=== PATIENT | male | born 1955 | race Caucasian/White ===

== ENCOUNTER 2016-08-23 03:14 | Inpatient (IN) ==
[2016-08-23] MEDS ORDERED: DILAUDID IV ONE ×2 (04:05→06:35)
[2016-08-23] MEDS ORDERED: ZOFRAN IV ONE (04:05)
[2016-08-23] MEDS ORDERED: NS 1,000 ML IV ONE (04:08)
[2016-08-23 04:29] LABS: BASO% 0.1 % (0.0-0.8); EOS# 0.04 X1000 (0.0-0.7); EOS% 0.4 % (0.0-10.0); HEMATOCRIT 46.7 % (42.0-52.0); HEMOGLOBIN 15.5 g/dL (14.0-18.0); IMM GRAN# 0.04 X1000 (0.0-0.04); IMM GRAN% 0.4 % (0.0-0.5); LYMPH# 0.63 X1000 (1.2-3.4); LYMPH% 5.6 % (20.5-51.1); MANUAL DIFF NEEDED? NO; MCH 28.4 PG (27-31); MCHC 33.2 g/dL (33-37); MCV 85.5 FL (81-99); MONO% 4.4 % (1.7-9.3); MPV 10.1 FL (7.4-10.4); NEUT% 89.1 % (42.2-75.2); PLT 300 X1000 (130-400); RBC 5.46 XMIL (4.7-6.1)
[2016-08-23 04:43] LABS: AGAP 14; ALBUMIN 3.5 g/dL (3.5-5.0); ALKALINE PHOSPHATASE 119 U/L (32-122); BUN 16 mg/dL (8-22); CALCIUM 8.7 mg/dL (8.8-10.2); CHLORIDE 104 mmol/L (98-107); COSMO 282; GOT 24 U/L (10-34); GPT 16 U/L (10-44); LIPASE 15 U/L (13-60); POTASSIUM 3.7 mmol/L (3.5-5.1); SODIUM 140 mmol/L (136-145); TCO2 22 mmol/L (25-35); TOTAL BILIRUBIN 1.38 mg/dL (0.20-1.00); TOTAL PROTEIN 6.7 g/dL (6.3-8.3)
[2016-08-23 05:09] LABS: URINE CULTURE NEEDED? NO; URINE MICRO REVIEW NEEDED? NO; URINE SOURCE CLEAN CATCH
[2016-08-23 05:13] LABS: BILIRUBIN URINE SMALL (NEGATIVE); BLOOD URINE NEGATIVE (NEGATIVE); COLOR ORANGE; GLUCOSE URINE NEGATIVE (NEGATIVE); LEUKOCYTES URINE NEGATIVE (NEGATIVE); NITRITE URINE NEGATIVE (NEGATIVE); PH URINE 5.5; PROTEIN URINE 30 mg/dL (NEGATIVE); SP GRAVITY URINE 1.038; TURBIDITY URINE CLEAR (CLEAR); UROBILINOGEN URINE 6 mg/dL (NORMAL)
[2016-08-23 05:14] LABS: UR EPITHELIAL CELLS <10 /HPF (<10); URINE BACTERIA NEGATIVE /HPF; URINE RBC <10 /HPF (<10); URINE WBC <10 /HPF (<10)
--- NOTE | 2016-08-23 05:46 | PROVIDER DOCUMENTATION ---
HPI-Abdominal Pain/GI Problem - General Chief Complaint: Abdominal Pain Stated Complaint: left flank pain Time Seen by Provider: 08/23/16 04:05 Source: patient (Patient is a 61 year old white male with history of diverticulitis with ruptured colon,CAD,diabetes,and Crohns disease who presents with worsening sharp 8/10 LLQ abdomen and flank pain since yesterday afternoon which feels like when he had a ruptured colon. Followed by dr. Eubanks and GI doctor in [place].) Allergies/Adverse Reactions: Patient Allergies Allergy/AdvReac Type Severity Reaction Status Date / Time niacin AdvReac FLUSHING Verified 01/02/16 17:27 [From [facility] Extended-Release] Home Medications: Home Medication List Medication Instructions Recorded Confirmed Last Taken Type Aspirin 325 mg PO DAILY #0 tablet 01/06/16 08/23/16 08/22/16 Rx RAMIpril [Altace] 5 mg PO DAILY #0 capsule 01/06/16 08/23/16 08/22/16 Rx SIMVAstatin [Zocor] 80 mg PO QHS #0 tablet 01/06/16 08/23/16 08/22/16 Rx Zolpidem [Ambien] 10 mg PO QHS #0 tablet 01/06/16 08/23/16 08/22/16 Rx Esomeprazole Magnesium [Nexium 1 tab PO DAILY 08/23/16 08/23/16 08/22/16 History 24Hr] Venlafaxine [Effexor] 1 tab PO DAILY 08/23/16 08/23/16 08/22/16 History - History of Present Illness-ABD Abdominal Pain Onset Location: reports: LLQ, flank (left) Pain Radiation: reports: no radiation Quality of Pain: reports: aching, sharp Onset/Duration: reports: other (yesterday afternoon) Timing: reports: getting worse Activities at Onset: reports: none Associated Symptoms: denies: chest pain, constipation, diaphoresis, diarrhea, fever/chills, genitourinary problems Dark Stools Present?: reports: none noticed Rectal Pain: reports: none Bruising or Bleeding Gums?: No Similar Symptoms Previously?: Yes Recently seen or treated by another doctor?: No Review of Systems - Adult - REVIEW OF SYSTEMS - ADULT Constitutional: denies: chills, fever Eyes: reports: no symptoms reported Ears, Nose, Mouth & Throat: reports: no symptoms reported Cardiovascular: denies: chest pain Respiratory: denies: shortness of breath Gastrointestinal: reports: see HPI, abdominal pain, nausea. denies: constipation, diarrhea, rectal bleeding Musculoskeletal: reports: no symptoms reported Integumentary: reports: no symptoms reported Neurological: reports: no symptoms reported Psychiatric: reports: no symptoms reported Endocrine: reports: no symptoms reported Hematologic/Lymphatic: reports: no symptoms reported Allergic/Immunologic: reports: no symptoms reported All Other Systems: Reviewed and Negative Past History - Adult - PAST MEDICAL HISTORY-ADULT Review of Records: reports: Old Records Reviewed, Nursing Assessment Review, Medications Reviewed, Social history reviewed & non-contributory. Major Childhood Illnesses: reports: denies history Cardiovascular: reports: denies history, MA (1992) Respiratory: reports: denies history Gastrointestinal: reports: diverticulosis, GERD, other (ruptured colon that healed on its own, gastroparesis) - PRIOR SURGERIES/PROCEDURES Surgical/Procedure History: reports: cholecystectomy, cardiac stent, other ( repair for diverticular rupture) - IMMUNIZATION STATUS Childhood Immunizations: UTD Flu Vaccine: See Nurse Assessment Physical Exam-General - CONSTITUTIONAL General Appearance: alert, other (in pain) - EYES Eyes: other (clear) - HEAD, EARS, NOSE, MOUTH & THROAT HENMT: moist mucous membranes, normal ENT inspection - NECK Neck: non-tender, supple - RESPIRATORY Respiratory: lungs clear - CARDIOVASCULAR Cardiovascular: regular rate, rhythm - GASTROINTESTINAL (ABDOMEN) Abdominal Exam: soft, other (LLQ tenderness). negative: guarding, rebound - MUSCULOSKELETAL Back Exam: normal inspection, other (left CVA tenderness) Extremity: normal range of motion Peripheral Pulses: radial (R): 2+, radial (L): 2+ - SKIN Integumentary: normal color, normal turgor - NEUROLOGIC Neurologic: grossly normal - PSYCHIATRIC Psych/Mental Status: anxious Progress - PLAN OF CARE/RESULTS Progress/Plan/Lab Results: Vital Signs - 8 hr 08/23/16 03:17 Temperature 98.2 F Pulse Rate 99 H Respiratory Rate 18 Blood Pressure 105/64 O2 Sat by Pulse Oximetry 100 Laboratory Results - last 24 hr 08/23/16 08/23/16 08/23/16 03:30 03:30 03:30 WBC 11.31 H RBC 5.46 Hgb 15.5 Hct 46.7 MCV 85.5 MCH 28.4 MCHC 33.2 RDW Std Deviation 14.3 Plt Count 300 MPV 10.1 Immature Gran % (Auto) 0.4 Neut % (Auto) 89.1 H Lymph % (Auto) 5.6 L Archer % (Auto) 4.4 Eos % (Auto) 0.4 Baso % (Auto) 0.1 Immature Gran # (Auto) 0.04 Neut # (Auto) 10.09 H Lymph # (Auto) 0.63 L Archer # (Auto) 0.50 Eos # (Auto) 0.04 Baso # (Auto) 0.01 Sodium 140 Potassium 3.7 Chloride 104 Carbon Dioxide 22 L Anion Gap 14 BUN 16 Creatinine 1.0 Estimated GFR/1.73 m2 > 60 BUN/Creatinine Ratio 16 Glucose 119 H Calculated Osmolality 282 Calcium 8.7 L Total Bilirubin 1.38 H AST 24 ALT 16 Alkaline Phosphatase 119 Troponin T < 0.010 Total Protein 6.7 Albumin 3.5 Globulin 3.2 Albumin/Globulin Ratio 1.1 Lipase 15 Urine Source Urine Color Urine Turbidity Urine pH Ur Specific [place] Urine Protein Ur Glucose (Stick) Ur Ketones (Stick) Urine Blood Urine Nitrite Urine Bilirubin Urobilinogen Dipstick Urine Leukocytes Urine WBC (Auto) Urine RBC (Auto) U Epithel Cells (Auto) Urine Bacteria (Auto) 08/23/16 05:08 WBC RBC Hgb Hct MCV MCH MCHC RDW Std Deviation Plt Count MPV Immature Gran % (Auto) Neut % (Auto) Lymph % (Auto) Archer % (Auto) Eos % (Auto) Baso % (Auto) Immature Gran # (Auto) Neut # (Auto) Lymph # (Auto) Archer # (Auto) Eos # (Auto) Baso # (Auto) Sodium Potassium Chloride Carbon Dioxide Anion Gap BUN Creatinine Estimated GFR/1.73 m2 BUN/Creatinine Ratio Glucose Calculated Osmolality Calcium Total Bilirubin AST ALT Alkaline Phosphatase Troponin T Total Protein Albumin Globulin Albumin/Globulin Ratio Lipase Urine Source CLEAN CATCH Urine Color ORANGE Urine Turbidity CLEAR Urine pH 5.5 Ur Specific [place] 1.038 Urine Protein 30 A Ur Glucose (Stick) NEGATIVE Ur Ketones (Stick) TRACE A Urine Blood NEGATIVE Urine Nitrite NEGATIVE Urine Bilirubin SMALL A Urobilinogen Dipstick 6 A Urine Leukocytes NEGATIVE Urine WBC (Auto) <10 Urine RBC (Auto) <10 U Epithel Cells (Auto) <10 Urine Bacteria (Auto) NEGATIVE Orders Category Date Time Status Saline Loc DIRECTED Care 08/23/16 04:06 Active NPO Diet 08/23/16 04:[address] ABD/PELVIS W/ IV CONT ONLY [CT] Stat Exams 08/23/16 04:06 Taken CBC WITH ELECTRONIC DIFF [HEME] Stat Lab 08/23/16 03:30 Completed COMPREHENSIVE METABOLIC PANEL [CHEM] Stat Lab 08/23/16 03:30 Completed LIPASE [CHEM] Stat Lab 08/23/16 03:30 Completed TROPONIN T Stat Lab 08/23/16 03:30 Completed URINALYSIS W/POSS RFLX CULT-1 [URINALYSIS] Stat Lab 08/23/16 05:08 Completed 0.9% Sodium Chloride Inj [Ns] 1,000 ml Med 08/23/16 04:08 Discontinued IV 999 mls/hr Hydromorphone [Dilaudid] Med 08/23/16 04:05 Discontinued 1 mg IV NOW ONE Ondansetron [Zofran] Med 08/23/16 04:05 Discontinued 4 mg IV NOW ONE EKG [EKG] Stat Ther 08/23/16 04:08 Ordered Result Diagrams: 08/23/16 03:30 08/23/16 03:30 - EKG 1 Time of EKG reading by physician:: 04:14 EKG Read and Signed by:: Armand Lees EKG Interpretation (*Must complete 3 of following elements*): Normal Partridge: normal QRS: normal RI Interval: normal ST Wave: normal - CHANGE OF SHIFT REPORT (ED Provider) Report Given and Care Transferred to:: Dr. Shankar Wooten Time of Transfer: 06:00 Items Pending: Labs, CT/MRI Results Departure - Departure Time of Disposition Decision: 06:00 DIAGNOSIS: Abdominal pain Qualifiers: Abdominal location: left lower quadrant Qualified Code(s): R10.32 - Left lower quadrant pain Disposition: STILL A PATIENT 30 Certified Medical Emergency: Emergent Condition: Stable Referrals and Follow-Ups: Junior Eubanks DO [Primary Care Provider] - - Critical Care Note This patient required my direct & personal management of CC.: No
[2016-08-23] MEDS ORDERED: ZOSYN 3.375 GM/NS 3.375 GM/50 ML IVPB IV ONE (06:06)
[2016-08-23] MEDS ORDERED: ZOFRAN IV PRN (08:11)
--- NOTE | 2016-08-23 08:12 | Diag Imaging Result Doc PS360 ---
CT ABD/PELVIS W/ IV CONT ONLY - 08/23/2016 INDICATION: LLQ pain TECHNIQUE: A CT dose reduction protocol was used. COMPARISON: 01/02/2016 FINDINGS: There is strandy atelectasis in the lung bases. There is moderate intraperitoneal free air. The source appears to be several loops of inflamed small bowel at the lateral left mid abdomen, in a location that was inflamed on the previous CT from 2016. There are several moderately dilated loops of small bowel, nonspecific, probably ileus as a result. No colonic obstruction. The distal colon is somewhat collapsed. There are numerous distal colon diverticula. Stable renal cysts. Stable hemangioma at the liver dome. Stable cholecystectomy changes. Stable tiny cyst in the spleen. There is trace free fluid in the pelvis. There are moderate degenerative changes of the spine. No acute or suspicious bony lesion. IMPRESSION: 1. Perforation arising from the left lower quadrant of the abdomen, in a location of several loops of small bowel that are inflamed. These were inflamed on the prior exam as well. 2. Severe diverticulosis coli 3. Small bowel ileus. Electronically signed by Espinoza Cedeno 08/23/2016 8:09 AM
[2016-08-23] MEDS: NS 1,000 ML IV SCH ×2 (09:28→17:45)
--- NOTE | 2016-08-23 09:28 | HISTORY AND PHYSICAL ---
CHIEF COMPLAINT: Abdominal discomfort in the left side of the abdomen and epigastrium. HISTORY: This is a 61-year-old gentleman, who reports the onset of abdominal pain yesterday. He says this feels like previous episodes when his colon or small bowel perforated. He presented to the emergency department this morning at [address] scan shows some extraluminal air, consistent with perforation. He does not present in extremis just with some diffuse abdominal pain. His home physician is Dr. Eubanks. He is followed by a gold layer in [place] but has not seen him for a few months. He has had previous episodes similar to this that were treated with antibiotics and resolved. One time he was operated on and had a small bowel resection for perforation. PAST MEDICAL HISTORY: Pertinent for coronary artery disease. He has had a heart attack in the early 90s. He has questionable vth-[id number]-[id number] diabetes. He has been told he might have Crohn disease as well. MEDICATIONS: At home include aspirin 325 mg daily, Altace 5 mg daily, Zocor 80 mg at bedtime, Ambien 10 mg at bedtime, Nexium 1 tablet daily. Effexor 1 tablet daily. He is intolerant of niacin which causes flushing, denies any true drug allergies. PAST SURGICAL HISTORY: His past history is as noted above, also has some gastroesophageal reflux. His other surgery besides his small bowel resection was a cholecystectomy, cardiac stent placement. FAMILY HISTORY: Noncontributory. SOCIAL HISTORY: He is . He is employed at [employer] [place]. Denies smoking or alcohol usage. REVIEW OF SYSTEMS: Constitutional: Denies chills or fever. Eyes: Reports no symptoms. ENT: No symptoms. Cardiac: No chest pain. Respiratory: No shortness of breath. GI: A little nausea and the diffuse pain. No constipation or diarrhea. Musculoskeletal: Negative. Integument: Negative. Neurologic: Negative. Psychiatric: Negative. Endocrine: Negative. Hematologic: Negative. Allergic: Negative. PHYSICAL EXAMINATION: VITAL SIGNS: He is afebrile. Heart rate 99, respiratory rate 18, blood pressure 105/64. He is normocephalic. No cervical adenopathy. No thyroid masses are palpated. LUNGS: Bilateral breath sounds are present. HEART: Regular rate and rhythm. ABDOMEN: Soft, diffusely tender. Complains more about in the epigastrium. Femoral pulses are present. No peripheral edema. EXTREMITIES: He has 2+ posterior tibial pulses. NEUROLOGIC: He is awake and alert. DIAGNOSTICS/LABS: White count 15572. Glucose 119. ASSESSMENT: Possible perforated diverticulum. PLAN: The plan is IV antibiotic therapy. I do not think an urgent trip to the operating room is indicated at this time. We discussed this; he agrees. cc: Subhash Lamb MD
[2016-08-23] MEDS: ZOSYN 3.375 GM/NS 3.375 GM/50 ML IVPB IV SCH ×4 (09:29→23:56)
[2016-08-23] MEDS: ASPIRIN PO SCH (09:32)
[2016-08-23] MEDS: ALTACE PO SCH (09:32)
[2016-08-23] MEDS: PRILOSEC PO SCH (09:32)
[2016-08-23] MEDS: EFFEXOR PO SCH (09:32)
[2016-08-23] MEDS: DILAUDID IV PRN ×3 (12:22→21:57)
[2016-08-23] MEDS: NORCO-10 PO PRN (17:45)
[2016-08-23] MEDS: ZOCOR PO SCH ×2 (19:48→23:55)
[2016-08-23] MEDS: HUMULIN R SUBQ SCH (21:41)
[2016-08-23] MEDS: AMBIEN PO SCH (21:41)
[2016-08-24] MEDS: NS 1,000 ML IV SCH ×4 (01:11→18:15)
[2016-08-24] MEDS: DILAUDID IV PRN ×4 (01:50→15:50)
[2016-08-24] MEDS: ZOSYN 3.375 GM/NS 3.375 GM/50 ML IVPB IV SCH ×4 (03:45→23:46)
[2016-08-24 06:00] LABS: MANUAL DIFF NEEDED? NO
[2016-08-24 06:01] LABS: BASO% 0.1 % (0.0-0.8); EOS% 2.8 % (0.0-10.0); HEMATOCRIT 43.5 % (42.0-52.0); HEMOGLOBIN 14.2 g/dL (14.0-18.0); IMM GRAN# 0.02 X1000 (0.0-0.04); IMM GRAN% 0.2 % (0.0-0.5); LYMPH# 0.79 X1000 (1.2-3.4); LYMPH% 7.3 % (20.5-51.1); MCH 28.5 PG (27-31); MCHC 32.6 g/dL (33-37); MCV 87.3 FL (81-99); MONO# 0.55 X1000 (0.11-0.59); MONO% 5.1 % (1.7-9.3); MPV 10.2 FL (7.4-10.4); NEUT% 84.5 % (42.2-75.2); PLT 282 X1000 (130-400); RBC 4.98 XMIL (4.7-6.1)
[2016-08-24] MEDS: PRILOSEC PO SCH (06:11)
[2016-08-24] MEDS: NORCO-10 PO PRN (06:11)
[2016-08-24] MEDS: HUMULIN R SUBQ SCH ×4 (06:12→23:46)
[2016-08-24 06:24] LABS: AGAP 12; BUN 16 mg/dL (8-22); CHLORIDE 99 mmol/L (98-107); COSMO 273; POTASSIUM 3.9 mmol/L (3.5-5.1); SODIUM 136 mmol/L (136-145); TCO2 25 mmol/L (25-35)
[2016-08-24] MEDS: ASPIRIN PO SCH (08:34)
[2016-08-24] MEDS: EFFEXOR PO SCH (08:34)
[2016-08-24] MEDS: ALTACE PO SCH (12:11)
[2016-08-24] MEDS: ZOCOR PO SCH (23:46)
[2016-08-24] MEDS: AMBIEN PO SCH (23:46)
[2016-08-25] MEDS: NS 1,000 ML IV SCH ×4 (02:09→20:57)
[2016-08-25] MEDS: ZOSYN 3.375 GM/NS 3.375 GM/50 ML IVPB IV SCH ×4 (02:09→20:54)
[2016-08-25] MEDS ORDERED: TYLENOL PO PRN (02:19)
[2016-08-25] MEDS ORDERED: MOTRIN PO PRN (04:40)
[2016-08-25 05:51] LABS: MANUAL DIFF NEEDED? NO
[2016-08-25 05:56] LABS: BASO% 0.1 % (0.0-0.8); EOS# 0.17 X1000 (0.0-0.7); EOS% 2.5 % (0.0-10.0); HEMATOCRIT 37.5 % (42.0-52.0); HEMOGLOBIN 12.5 g/dL (14.0-18.0); LYMPH# 0.69 X1000 (1.2-3.4); MCH 28.6 PG (27-31); MCHC 33.3 g/dL (33-37); MCV 85.8 FL (81-99); MONO# 0.44 X1000 (0.11-0.59); MONO% 6.4 % (1.7-9.3); MPV 9.8 FL (7.4-10.4); PLT 239 X1000 (130-400); RBC 4.37 XMIL (4.7-6.1)
[2016-08-25] MEDS: HUMULIN R SUBQ SCH ×4 (06:08→20:55)
[2016-08-25] MEDS: PRILOSEC PO SCH (06:20)
[2016-08-25] MEDS: ASPIRIN PO SCH (08:16)
[2016-08-25] MEDS: EFFEXOR PO SCH (08:16)
--- NOTE | 2016-08-25 08:51 | PROGRESS NOTE ---
DATE: 08/25/2016 Mr. Benjamin Lacy is now hospital day 3, being admitted for complicated small-bowel or sigmoid diverticulitis. He was admitted on 08/23/2016 through the emergency department per Dr. Lamb. He has been placed on IV antibiotics and clinically he states that he feels better. His white blood cell count has gone from 10.86 to 6.91. Hematocrit is 37%. He is afebrile. His heart rate is 87, blood pressure 117/77, O2 saturation 92%. He is on IV Zosyn. He has been given a full liquid diet per Dr. Lamb. His abdomen is mostly soft. It is cement based materials pump tender in the left lower quadrant. Will continue conservative treatment with IV antibiotics. I will leave his diet as it is, as a full liquid diet. cc: MD Subhash Robertson MD
[2016-08-25] MEDS: ALTACE PO SCH (12:08)
[2016-08-25] MEDS: DILAUDID IV PRN (17:27)
[2016-08-25] MEDS: ZOCOR PO SCH (20:53)
[2016-08-25] MEDS: AMBIEN PO SCH (20:54)
[2016-08-25] MEDS: NORCO-10 PO PRN (22:42)
[2016-08-26] MEDS: ZOSYN 3.375 GM/NS 3.375 GM/50 ML IVPB IV SCH ×4 (03:03→20:20)
[2016-08-26] MEDS: DILAUDID IV PRN ×3 (03:05→20:19)
[2016-08-26] MEDS: PRILOSEC PO SCH (05:59)
[2016-08-26] MEDS: HUMULIN R SUBQ SCH ×4 (06:06→21:33)
[2016-08-26] MEDS: NORCO-10 PO PRN ×3 (08:02→22:54)
[2016-08-26] MEDS: ASPIRIN PO SCH (08:15)
[2016-08-26] MEDS: ALTACE PO SCH (08:15)
[2016-08-26] MEDS: EFFEXOR PO SCH (08:15)
[2016-08-26] MEDS: NS 1,000 ML IV SCH ×3 (11:44→18:05)
--- NOTE | 2016-08-26 15:07 | Diag Imaging Result Doc PS360 ---
EXAM: ABDOMEN/PELVIS W/CONTRAST INDICATION: evaluate area of diverticulitis for abscess COMPARISON: 08/23/2016 FINDINGS: There is a very small right pleural effusion and probably trace fluid on the left as well. There is mild subsegmental atelectasis at the lung bases. There is less free abdominal gas as compared to the recent prior study. There is still extensive inflammatory change arising from the left lower quadrant with several thickened loops of small bowel in the region. The inflammatory changes and thickening appear to be somewhat worse than the previous study. There appear to be small fluid collections between the loops of this inflamed segment of small bowel. This is worrisome for developing inflammatory phlegmon. There is a larger fluid collection that appears to be loculated lateral please loops of bowel and anterior to the descending colon measuring approximately 5.7 x 2.0 cm axially. A developing abscess here cannot be excluded. There is also small volume nonloculated free fluid layering in the pelvis. There are several fluid-filled loops of small bowel containing air-fluid levels likely representing ileus. Otherwise, the abdomen and pelvis are essentially stable as compared to the recent previous study. IMPRESSION: 1.Worsening inflammatory changes and thickening involving several loops of small bowel in the left lower quadrant. 2.Overall less free abdominal gas is compared to the previous study. 3.A few tiny fluid collections interdigitating between loops of the inflamed small bowel in the left lower quadrant and a larger fluid collection abutting the lateral abdominal wall on the left at the same level. This is worrisome for phlegmon/developing abscess. 4.Bilateral small pleural effusions. 5.Essentially stable, otherwise. Electronically signed by Toiñto Lawrence 08/26/2016 3:05 PM
[2016-08-26] MEDS: ZOCOR PO SCH (20:21)
[2016-08-26] MEDS: AMBIEN PO SCH (20:21)
[2016-08-27] MEDS: DILAUDID IV PRN (01:35)
[2016-08-27] MEDS: NS 1,000 ML IV SCH ×4 (01:35→22:51)
[2016-08-27] MEDS: ZOSYN 3.375 GM/NS 3.375 GM/50 ML IVPB IV SCH ×4 (03:19→22:42)
[2016-08-27] MEDS: PRILOSEC PO SCH (06:22)
[2016-08-27] MEDS: HUMULIN R SUBQ SCH ×4 (06:23→22:30)
[2016-08-27] MEDS: EFFEXOR PO SCH (08:15)
[2016-08-27] MEDS: ALTACE PO SCH (08:15)
[2016-08-27] MEDS: ASPIRIN PO SCH (08:15)
[2016-08-27] MEDS: NORCO-10 PO PRN ×3 (08:21→22:50)
[2016-08-27] MEDS ORDERED: GOLYTELY PO ONE (10:00)
--- NOTE | 2016-08-27 11:54 | EKG Report ---
Test Performed on : 08/27/2016 06:24:08 AM Test Reason : CP Blood Pressure : / mmHG Vent. Rate : 086 BPM Atrial Rate : 086 BPM P-R Int : 142 ms QRS Dur : 088 ms QT Int : 400 ms P-R-T Axes : 027 075 029 degrees QTc Int : 478 ms Normal sinus rhythm. Normal ECG When compared with ECG of 23-AUG-2016 04:13, Nonspecific T wave abnormality no longer evident in Lateral leads Confirmed by Garett Olsen MD ([id number]) on 08/27/2016 4:17:25 PM
[2016-08-27] MEDS: ERYTHROMYCIN BASE PO SCH ×3 (14:21→22:41)
[2016-08-27] MEDS: NEOMYCIN PO SCH ×3 (14:21→22:41)
[2016-08-27] MEDS: ZOCOR PO SCH (22:40)
[2016-08-27] MEDS: AMBIEN PO SCH (22:41)
[2016-08-28] MEDS: NS 1,000 ML IV SCH ×2 (00:48→17:48)
[2016-08-28] MEDS: DILAUDID IV PRN ×5 (03:31→23:04)
[2016-08-28] MEDS: ZOSYN 3.375 GM/NS 3.375 GM/50 ML IVPB IV SCH ×4 (03:32→22:11)
[2016-08-28] MEDS: PRILOSEC PO SCH (06:08)
[2016-08-28] MEDS: NORCO-10 PO PRN (06:30)
[2016-08-28] MEDS: HUMULIN R SUBQ SCH ×4 (06:33→21:36)
[2016-08-28] MEDS: ALTACE PO SCH (09:56)
[2016-08-28] MEDS: ASPIRIN PO SCH (09:57)
[2016-08-28] MEDS: EFFEXOR PO SCH (09:57)
[2016-08-28] MEDS ORDERED: VERSED ONE ×2 (11:32→12:02)
[2016-08-28] MEDS ORDERED: MARCAINE 0.25% PF ONE (11:32)
[2016-08-28] MEDS ORDERED: SODIUM CHLORIDE 0.9% 10 ML ONE (11:32)
[2016-08-28] MEDS ORDERED: EXPAREL 1.3% ONE (11:33)
[2016-08-28] MEDS ORDERED: FENTANYL ONE (14:52)
[2016-08-28] MEDS ORDERED: DIPRIVAN 1% ONE (14:53)
[2016-08-28 15:19] LABS: URINE MICRO REVIEW NEEDED? NO; URINE SOURCE CATH
[2016-08-28 15:27] LABS: BILIRUBIN URINE NEGATIVE (NEGATIVE); BLOOD URINE NEGATIVE (NEGATIVE); COLOR YELLOW; GLUCOSE URINE NEGATIVE (NEGATIVE); LEUKOCYTES URINE NEGATIVE (NEGATIVE); NITRITE URINE NEGATIVE (NEGATIVE); PROTEIN URINE NEGATIVE (NEGATIVE); SP GRAVITY URINE 1.012; TURBIDITY URINE CLEAR (CLEAR); UR EPITHELIAL CELLS <10 /HPF (<10); URINE BACTERIA NEGATIVE /HPF; URINE RBC <10 /HPF (<10); URINE WBC <10 /HPF (<10); UROBILINOGEN URINE NORMAL (NORMAL)
--- NOTE | 2016-08-28 15:41 | OPERATIVE NOTE ---
PROCEDURE DATE: 08/28/2016 NAME OF THE PROCEDURE: Exploratory laparotomy, left colectomy with mobilization of splenic flexure; resection of a portion of jejunum (greater than 100 cm) and drainage of intra-abdominal abscess. SURGEON: Subhash Lamb MD. TICKET COUNTER: Dr. Duran, Morgan Jacinto, RN, Naye Nuñez, RN. PREOPERATIVE DIAGNOSIS: Perforated diverticulitis with intra-abdominal abscess. POSTOPERATIVE DIAGNOSIS: Perforated diverticulitis with intra-abdominal abscess. INDICATIONS: 61-year-old was admitted with perforated diverticulitis. He has been treated with antibiotics. We were able to prep his bowel. Serial CAT scan show development of an intra- abdominal abscess with increased inflammation. DESCRIPTION OF PROCEDURE: After satisfactory general endotracheal anesthesia was achieved, the abdomen was prepped and draped in a sterile fashion. A midline incision was made. We entered the abdominal cavity. There were adhesions between the omentum and anterior abdominal wall. We took those down with electrocautery. We took care not to injure the bowel. We went on to the left side and encountered the abscess in the left gutter and evacuated the pus that was present. There was also purulence between the small bowel loops. We the greater omentum off the abscess cavity and unroofed it. There were multiple loops of small bowel with diverticula that appeared to be involved. In further dissecting out the left upper quadrant there was thickening to the left colon as well. So I felt that there was diverticulitis involving the left colon as well as some of the small bowel so I decided to resect the left colon as well as a portion of the jejunum. We incised the white line of Toldt all the way down to the sigmoid and began mobilization of splenic flexure using the electrocautery and the LigaSure. We took the greater omentum off the transverse portion of the distal transverse colon. We continued to use the LigaSure to divide the greater omentum until we could mobilize the splenic flexure and the left colon into the wound. We chose a place in the sigmoid to divide it with a MIHAI 80 blue cartridge. We then divided the mesentery all the way up the left colic using a LigaSure. We clamped and divided the left colic and suture ligated with a 2-0 silk suture ligature. We then brought the distal transverse colon down to the sigmoid. We divided that portion of the left colon and the distal transverse colon and handed off the diseased segment. We approximated the end of the colon. We used 3-0 silks and seromuscular stitches to approximate the posterior layer. We removed the staple line. We used a 3-0 Polysorb running locking stitch of the mucosa and then changed to a [place] stitch anteriorly and the final layer was 3-0 silks in a Lembert fashion. This completed the resection of the left colon and the end-to-end anastomosis. We did not have to close the mesentery. We then identified the diseased segment of small bowel with multiple large diverticula and we decided to resect about 100 cm or at least 100 cm of the jejunum that was diseased. We laid the small bowel [id number], divided the small bowel with the MIHAI 60 blue cartridge, laying the proximal jejunum to the distal jejunum and then after dividing the small bowel we divided the mesentery with the LigaSure all the way to the major vessels. We clamped and divided them and suture ligated with 2-0 silk suture ligature. This allowed us to hand off the diseased segment of small bowel. We then laid the small bowel [id number]. We used a 3-0 silk to approximate them, cut off the corners of the staple line and introduced a MIHAI 80 blue cartridge to do a [id number] stapled anastomosis. The open end of the bowel was grasped with Allis and a TA 60 blue cartridge used to staple off the opened end of both limbs of the bowel. We then inverted that staple line with 3-0 silks in a Lembert fashion. We closed the mesentery with 3-0 silks. We changed gloves at this point and rid ourselves of contaminated instruments. We irrigated the abdominal cavity copiously with warm saline. Hemostasis was satisfactory. There was thickened portion of greater omentum that we removed using the LigaSure. We then laid the residual omentum over the bowel and proceeded after washing out the abdominal cavity in all 4 quadrants we then palpated the NG tube in the stomach and it was appropriate position. We then closed the peritoneum with 2-0 chromic. We closed the fascia with running #2 Prolene. We irrigated out subcutaneous tissue copiously. We then closed the skin with magan. Sterile dressing was applied. He tolerated it well. Was sent to the recovery room in satisfactory condition. cc: Subhash Lamb MD
[2016-08-28] MEDS ORDERED: NS 1,000 ML ONE (16:05)
[2016-08-28] MEDS: OFIRMEV 1000 MG/ISOTONIC SOLN 1,000 MG/100 ML BOTTLE IV SCH ×2 (17:07→23:04)
[2016-08-28] MEDS: PROTONIX IV SCH (17:08)
[2016-08-28] MEDS: PERIDEX MT SCH (22:11)
[2016-08-28] MEDS: AMBIEN PO SCH (22:11)
[2016-08-29] MEDS: DILAUDID IV PRN ×5 (02:06→20:26)
[2016-08-29] MEDS: NS 1,000 ML IV SCH ×4 (02:06→18:06)
[2016-08-29] MEDS: ZOSYN 3.375 GM/NS 3.375 GM/50 ML IVPB IV SCH ×4 (05:00→23:09)
[2016-08-29] MEDS: OFIRMEV 1000 MG/ISOTONIC SOLN 1,000 MG/100 ML BOTTLE IV SCH ×5 (05:34→22:46)
[2016-08-29 06:20] LABS: BASO% 0.2 % (0.0-0.8); HEMATOCRIT 35.9 % (42.0-52.0); HEMOGLOBIN 12.1 g/dL (14.0-18.0); IMM GRAN# 0.05 X1000 (0.0-0.04); IMM GRAN% 0.6 % (0.0-0.5); LYMPH# 0.49 X1000 (1.2-3.4); LYMPH% 5.8 % (20.5-51.1); MANUAL DIFF NEEDED? NO; MCH 28.6 PG (27-31); MCHC 33.7 g/dL (33-37); MCV 84.9 FL (81-99); MONO# 0.53 X1000 (0.11-0.59); MONO% 6.3 % (1.7-9.3); MPV 9.4 FL (7.4-10.4); NEUT% 87.1 % (42.2-75.2); PLT 406 X1000 (130-400); RBC 4.23 XMIL (4.7-6.1)
[2016-08-29] MEDS: HUMULIN R SUBQ SCH ×4 (06:25→20:27)
[2016-08-29 06:35] LABS: AGAP 12; BUN 8 mg/dL (8-22); CALCIUM 7.3 mg/dL (8.8-10.2); CHLORIDE 101 mmol/L (98-107); COSMO 272; POTASSIUM 4.1 mmol/L (3.5-5.1); SODIUM 136 mmol/L (136-145); TCO2 23 mmol/L (25-35)
[2016-08-29] MEDS: PERIDEX MT SCH ×2 (09:24→20:27)
[2016-08-29] MEDS: EFFEXOR PO SCH (09:24)
[2016-08-29] MEDS: ASPIRIN PO SCH (09:25)
[2016-08-29] MEDS ORDERED: ZOFRAN ONE (10:08)
[2016-08-29] MEDS ORDERED: ROBINUL ONE (10:08)
[2016-08-29] MEDS ORDERED: NEOSTIGMINE ONE (10:08)
[2016-08-29] MEDS ORDERED: NORCURON ONE (10:08)
[2016-08-29] MEDS ORDERED: OFIRMEV 1000 MG/ISOTONIC SOLN 1,000 MG/100 ML BOTTLE ONE (10:08)
[2016-08-29] MEDS ORDERED: NEO-SYNEPHRINE ONE (10:08)
[2016-08-29] MEDS ORDERED: QUELICIN (DOSE) ONE (10:08)
[2016-08-29] MEDS ORDERED: DECADRON ONE (10:08)
[2016-08-29] MEDS ORDERED: LR 5,000 ML ONE (10:08)
[2016-08-29] MEDS ORDERED: XYLOCAINE-MPF 2% ONE (10:08)
[2016-08-29] MEDS: PROTONIX IV SCH (18:02)
[2016-08-29] MEDS: AMBIEN PO SCH (22:41)
[2016-08-30] MEDS: DILAUDID IV PRN ×2 (02:08→03:59)
[2016-08-30] MEDS: NS 1,000 ML IV SCH ×3 (03:59→15:26)
[2016-08-30] MEDS: OFIRMEV 1000 MG/ISOTONIC SOLN 1,000 MG/100 ML BOTTLE IV SCH ×6 (04:00→22:23)
[2016-08-30] MEDS: ZOSYN 3.375 GM/NS 3.375 GM/50 ML IVPB IV SCH ×5 (04:00→22:23)
[2016-08-30] MEDS: HUMULIN R SUBQ SCH ×4 (06:38→20:53)
[2016-08-30] MEDS: ASPIRIN PO SCH (09:42)
[2016-08-30] MEDS: MORPHINE IV PRN ×3 (09:42→20:52)
[2016-08-30] MEDS: PERIDEX MT SCH ×2 (09:42→20:53)
[2016-08-30] MEDS: EFFEXOR PO SCH (09:42)
--- NOTE | 2016-08-30 10:11 | PROGRESS NOTE ---
DATE: 08/30/2016 SUBJECTIVE: The patient is doing okay this morning. No significant problems overnight. He is sore. No flatus or bowel movement yet. No nausea or vomiting. OBJECTIVE: Vital Signs: He is afebrile. Vital signs are stable. General: He is alert and oriented x3. No acute distress. Gastrointestinal: Soft. Appropriately tender, nondistended. Hypoactive bowel sounds. ZEENAT drain is serosanguineous with 125 mL out yesterday. ASSESSMENT/PLAN: A 61-year-old male status post small bowel resection and left colectomy for diverticulitis. He is postoperative day 2. He also had drainage of intra-abdominal abscess. He will continue on Zosyn. We will keep him on nothing by mouth, except for ice chips until his bowel function returns. We will remove his Kebede catheter today, and I have encouraged ambulation. cc: MD Subhash Alvares MD
[2016-08-30] MEDS: PROTONIX IV SCH ×2 (15:20→18:22)
[2016-08-31] MEDS: MORPHINE IV PRN ×3 (01:44→20:52)
[2016-08-31] MEDS: NS 1,000 ML IV SCH ×3 (01:46→17:47)
[2016-08-31] MEDS: AMBIEN PO SCH ×2 (01:55→21:36)
[2016-08-31] MEDS: OFIRMEV 1000 MG/ISOTONIC SOLN 1,000 MG/100 ML BOTTLE IV SCH ×5 (04:36→21:35)
[2016-08-31] MEDS: ZOSYN 3.375 GM/NS 3.375 GM/50 ML IVPB IV SCH ×5 (04:37→22:04)
[2016-08-31] MEDS: HUMULIN R SUBQ SCH ×3 (06:22→21:44)
[2016-08-31] MEDS: ASPIRIN PO SCH (08:17)
[2016-08-31] MEDS: EFFEXOR PO SCH (08:17)
[2016-08-31] MEDS: PERIDEX MT SCH ×2 (08:17→21:36)
[2016-08-31] MEDS: PROTONIX IV SCH (16:17)
[2016-08-31] MEDS: SODIUM CHLORIDE 0.9% INJ SCH (16:17)
[2016-09-01] MEDS: MORPHINE IV PRN (03:11)
[2016-09-01] MEDS: PERIDEX MT SCH ×2 (09:04→20:52)
[2016-09-01] MEDS: ASPIRIN PO SCH (09:04)
[2016-09-01] MEDS: EFFEXOR PO SCH (09:05)
[2016-09-01] MEDS: ZOSYN 3.375 GM/NS 3.375 GM/50 ML IVPB IV SCH ×5 (09:05→21:52)
[2016-09-01] MEDS: HUMULIN R SUBQ SCH ×4 (11:10→20:52)
[2016-09-01] MEDS: NS 1,000 ML IV SCH ×2 (11:12→17:25)
[2016-09-01] MEDS: OFIRMEV 1000 MG/ISOTONIC SOLN 1,000 MG/100 ML BOTTLE IV SCH ×5 (11:12→21:59)
[2016-09-01] MEDS ORDERED: NORCO-10 PO PRN (16:09)
[2016-09-01] MEDS: SODIUM CHLORIDE 0.9% INJ SCH (17:23)
[2016-09-01] MEDS: PROTONIX IV SCH (17:23)
[2016-09-01] MEDS: AMBIEN PO SCH (20:49)
[2016-09-02] MEDS: ZOSYN 3.375 GM/NS 3.375 GM/50 ML IVPB IV SCH ×4 (04:17→21:43)
[2016-09-02] MEDS: OFIRMEV 1000 MG/ISOTONIC SOLN 1,000 MG/100 ML BOTTLE IV SCH ×2 (05:09→10:05)
[2016-09-02] MEDS: HUMULIN R SUBQ SCH ×4 (06:14→20:00)
[2016-09-02] MEDS: PERIDEX MT SCH ×2 (09:08→20:00)
[2016-09-02] MEDS: EFFEXOR PO SCH (09:08)
[2016-09-02] MEDS: ASPIRIN PO SCH (09:08)
[2016-09-02] MEDS: NS 1,000 ML IV SCH (10:10)
[2016-09-02] MEDS ORDERED: SALINE LOCK IV FLUID XX ONE (14:44)
[2016-09-02] MEDS: AMBIEN PO SCH (20:00)
[2016-09-03] MEDS: ZOSYN 3.375 GM/NS 3.375 GM/50 ML IVPB IV SCH (04:11)
[2016-09-03] MEDS: HUMULIN R SUBQ SCH (06:31)
[2016-09-03] MEDS: PERIDEX MT SCH (07:44)
[2016-09-03] MEDS: EFFEXOR PO SCH (07:44)
[2016-09-03] MEDS: ASPIRIN PO SCH (07:44)
[2016-09-03 08:24] VITALS: BP 147/73
--- NOTE | 2016-09-15 08:38 | DISCHARGE SUMMARY ---
ADMISSION DATE: 08/23/2016 DISCHARGE DATE: 09/03/2016 PRIMARY DISCHARGE DIAGNOSIS: Acute diverticulitis with abscess. PRIMARY PROCEDURE: 1. Exploratory laparotomy. 2. Left colectomy with mobilization of splenic flexure. 3. Resection of portion of the jejunum and drainage of intra-abdominal abscess. This is a 61-year-old gentleman who presented with signs and symptoms of acute diverticulitis. CT scan showed extraluminal air. He was admitted and placed on IV antibiotic therapy. He was able to continue with p.o. intake. We were able to reduce his white count we repeated his CAT scan which showed that showed progression of his abscess so on 08/28 he was taken to the operating room for definitive procedure. Postoperatively, we continued on IV Zosyn. We eventually were able to advance his diet. By 09/03/2016, that was postop day 6, he was afebrile taking p.o. fine. His drain was removed. It was felt he could be discharged home. He will return to the office for staple removal. cc: Subhash Lamb MD
== END 2016-09-03 08:45 | disposition home or self-care (01) ==
LOC: ED 03:14 → 4N 07:33
PROVIDERS: ADMIT Surgery; ATTEND Surgery